=== PATIENT | male | born 1960 | race Caucasian/White ===

== ENCOUNTER 2019-12-06 21:03 | Inpatient (IN) | payer OTHER ==
[~2019-12-06] VITALS: Ht 177.8 cm; Wt 120.2 kg
--- NOTE | ~2019-12-06 | OP ---
[address] [address] OPERATIVE REPORT Name: STEVAN OCONNELL Room: [address] IN M.R.#: [id number] Admission: 12/07/19 Attend Phys: Jaqueline White MD Discharge: Date of : 58 Report #: [id number] THIS REPORT FOR: //name// cc: Chau Ireland Bradley L. DO ~ THIS REPORT FOR: //name// CC: Chau White DATE OF SERVICE: 12/08/2019 PREOPERATIVE DIAGNOSES: 1. Gallstone pancreatitis. 2. Cholecystitis. 3. History of choledocholithiasis. POSTOPERATIVE DIAGNOSES: 1. Gallstone pancreatitis. 2. Cholecystitis. 3. History of choledocholithiasis. PROCEDURE: Laparoscopic cholecystectomy with intraoperative cholangiogram. SURGEON: Ramirez Barajas MD ANESTHESIA: General. ESTIMATED BLOOD LOSS: 50 mL. SPECIMEN: Gallbladder. DESCRIPTION OF PROCEDURE: After informed consent was obtained, the patient was brought to the operating room and placed supine. SCDs were placed and working, preoperative antibiotics were administered, general anesthesia was induced. The abdomen was prepped and draped in usual sterile fashion. A 5 mm incision was made in the left upper quadrant. A 5 mm trocar was placed under direct vision. Pneumoperitoneum was established. Three right upper quadrant 5 mm ports were placed under direct vision and a periumbilical 5 mm trocar. The patient was placed in reverse Trendelenburg position. The gallbladder was grasped and retracted cephalad. It was inflamed consistent with cholecystitis. I worked to dissect out the cystic duct and cystic artery. The area was very inflamed and careful dissection was undertaken to identify all the structures. A ductotomy was made. Cholangiogram catheter was inserted. Cholangiogram [place] [address] OPERATIVE REPORT Name: STEVAN OCONNELL Room: [address] IN [facility]#: [id number] Admission: 12/07/19 Attend Phys: Jaqueline White MD Discharge: Date of : 58 Report #: [id number] This demonstrated filling of the cystic duct, common bile duct, common hepatic duct, bifurcation of the hepatics. There was easy flow into the duodenum. However, at the level of the cystic duct there appeared to be a 4-5 mm filling defect. It was difficult to say whether this was an air bubble or 1 more common bile duct stone. The cholangiogram catheter was removed. The cystic duct and artery were clipped and ligated leaving a clip and on the cystic artery and a PDS Endoloop on the remaining cystic duct. Gallbladder was then taken off the liver bed and this was done with electrocautery. It was placed into an Endopouch and removed through the right lateral incision. The ports were then removed under direct vision. The fascia at the right lateral incision was closed with a gslutr-gd-dyudc 0 Vicryl. Skin was closed with 4-0 Monocryl. Incisions were sealed with Dermabond. INTRAOPERATIVE FINDINGS: There appeared to be a filling defect at the level of the cystic duct and common bile duct junction. There was good easy flow into the duodenum. COMPLICATIONS: None. DISPOSITION: The patient was taken to recovery in satisfactory condition. By: 1216 [id number] Barajas MD /nt
--- NOTE | ~2019-12-06 | PROC ---
[address] [address] PROCEDURE REPORT Name: STEVAN OCONNELL Room: [address] ADM IN M.R.#: [id number] Admission: 12/07/19 Attend Phys: Jaqueline White MD Discharge: Date of : 58 Report #: [id number] THIS REPORT FOR: //name// cc: Chau Ireland Bradley L. DO ~ THIS REPORT FOR: //name// For GI report, please see the Provation report in Perceptive 7 content. By: 0639Medical Records Staff TRICE /RAGHAV
[2019-12-06 21:09] VITALS: BP 139/83
[2019-12-06] MEDS ORDERED: FENOFIBRATE150 MG PO (21:20)
[2019-12-06] MEDS ORDERED: PERCOCET 7.5-31 EAC1 PO (21:21)
[2019-12-06] MEDS ORDERED: TOPROL XL50 MG PO (21:21)
[2019-12-06] MEDS ORDERED: FLEXERIL PO (21:21)
[2019-12-06] MEDS ORDERED: AMLODIPINE BESY10 MG PO (21:21)
[2019-12-06] MEDS ORDERED: LODINE400 M1 PO (21:22)
[2019-12-06] MEDS ORDERED: ZOCOR20 MG PO (21:22)
[2019-12-06] MEDS ORDERED: METFORMIN HCL500 M3 (21:22)
[2019-12-06 21:23] LABS: URINE BLOOD TRACE (Negative); URINE CLARITY CLEAR; URINE COLOR DARK YELLOW; URINE GLUCOSE-RANDOM TRACE (Negative); URINE KETONES TRACE (Negative); URINE LEUKOCYTES-REFLEX NEGATIVE (Negative); URINE PROTEIN 1+ (Negative); URINE SPECIFIC GRAVITY 1.025 (1.005-1.030)
[2019-12-06] MEDS ORDERED: GLIMEPIRIDE4 MG PO (21:23)
[2019-12-06 21:27] LABS: ICTOTEST (BILI CONFIRMATORY) Positive (Negative); URINE BILIRUBIN 3+ (Negative); URINE NITRITE-REFLEX POSITIVE (Negative)
[2019-12-06 21:45] LABS: AMORPHOUS URATES Many /LPF (None Seen); BACTERIA-REFLEX >30 Many /HPF (None Seen); CASTS None Seen /LPF (None Seen); SQUAMOUS 0-3 Few /LPF (0-3); URINE RBC 0-2 Rare /HPF (0-2); URINE WBC-REFLEX 0-5 Rare /HPF (0-5)
[2019-12-06 21:45] LABS: HEMATOCRIT 41.2 % (42.0-52.0); HEMOGLOBIN 14.5 gm/dL (14.0-18.0); MCH 28.4 pg (26.0-34.0); MCHC 35.3 g/dL (28.0-37.0); MCV 80.4 fL (80.0-100.0); MPV 8.7 fl. (7.2-11.1); NUCLEATED RBCS 0 /100WBC; PLATELET COUNT* 147 thou/uL (150-400); RBC 5.12 mil/uL (4.50-6.00); RDW-CV 13.5 % (10.5-14.5); WBC 8.3 thou/uL (4.0-11.0)
[2019-12-06 22:06] LABS: INR 1.3; PROTIME 13.1 Seconds (9.20-11.50)
[2019-12-06 22:07] LABS: CALCIUM 8.4 mg/dL (8.5-10.1); CREATININE 1.1 mg/dL (0.6-1.3)
[2019-12-06 22:15] LABS: PLATELET ESTIMATE ADEQUATE
[2019-12-06 22:16] LABS: ABSOLUTE LYMPHOCYTES 0.6 thou/uL (0.8-5.3); ABSOLUTE MONOCYTES 0.4 thou/uL (0.0-1.2); ABSOLUTE NEUTROPHILS 7.3 thou/uL (1.6-8.1); ALBUMIN 2.7 g/dL (3.4-5.0); ANISOCYTOSIS Occasional; MAGNESIUM 1.4 mg/dL (1.8-2.4); POLYCHROMASIA Occasional; TOTAL BILIRUBIN 8.5 mg/dL (<0.1-1.0); TOTAL PROTEIN 6.2 g/dL (6.4-8.2)
[2019-12-06 22:22] LABS: POTASSIUM 2.9 mmol/L (3.5-5.1)
[2019-12-07 01:00] VITALS: BP 118/62
[2019-12-07 01:30] VITALS: BP 101/54
--- NOTE | 2019-12-07 05:32 | NUR ---
PATIENT ARRIVED ON FLOOR FROM ER AT ABOUT 0110. PATIENT ADMISSION HISTORY AND ASSESSMENT WAS COMPLETED CHARTED. IV FLUIDS WERE STARTED AT 100 ML/HR. PATIENT IS NPO ORDERED. WILL CONTINUE TO MONITOR.
[2019-12-07 05:43] LABS: MAGNESIUM 2.1 mg/dL (1.8-2.4); POTASSIUM 3.4 mmol/L (3.5-5.1)
[2019-12-07 08:08] VITALS: BP 137/87
[2019-12-07 08:38] LABS: ABSOLUTE LYMPHOCYTES 0.8 thou/uL (0.8-5.3); HEMATOCRIT 39.7 % (42.0-52.0); MCH 28.4 pg (26.0-34.0); RDW-CV 13.6 % (10.5-14.5)
[2019-12-07 08:40] LABS: ABSOLUTE EOSINOPHILS 0.1 thou/uL (0.0-0.7); ABSOLUTE MONOCYTES 0.6 thou/uL (0.0-1.2); ABSOLUTE NEUTROPHILS 5.7 thou/uL (1.6-8.1); BASOPHILS 0.3 %; EOSINOPHILS 0.7 %; HEMOGLOBIN 14.2 gm/dL (14.0-18.0); LYMPHOCYTES 10.8 %; MCHC 35.7 g/dL (28.0-37.0); MCV 79.6 fL (80.0-100.0); MONOCYTES 8.3 %; MPV 8.3 fl. (7.2-11.1); NUCLEATED RBCS 0 /100WBC; PLATELET COUNT* 145 thou/uL (150-400); POLYS 79.9 %; RBC 4.99 mil/uL (4.50-6.00); WBC 7.2 thou/uL (4.0-11.0)
[2019-12-07 09:02] LABS: ALBUMIN 2.3 g/dL (3.4-5.0); CALCIUM 8.1 mg/dL (8.5-10.1); CREATININE 0.9 mg/dL (0.6-1.3); POTASSIUM 3.4 mmol/L (3.5-5.1); TOTAL BILIRUBIN 9.8 mg/dL (<0.1-1.0); TOTAL PROTEIN 6.3 g/dL (6.4-8.2)
[2019-12-07 20:30] VITALS: BP 122/72
[2019-12-08 05:00] LABS: ABSOLUTE BASOPHILS 0.1 thou/uL (0.0-0.2); ABSOLUTE LYMPHOCYTES 0.8 thou/uL (0.8-5.3); ABSOLUTE MONOCYTES 0.4 thou/uL (0.0-1.2); ABSOLUTE NEUTROPHILS 6.9 thou/uL (1.6-8.1); BASOPHILS 0.6 %; EOSINOPHILS 0.1 %; HEMATOCRIT 39.1 % (42.0-52.0); HEMOGLOBIN 13.4 gm/dL (14.0-18.0); LYMPHOCYTES 10.1 %; MCH 28.1 pg (26.0-34.0); MCHC 34.2 g/dL (28.0-37.0); MCV 82.3 fL (80.0-100.0); MONOCYTES 4.6 %; MPV 8.6 fl. (7.2-11.1); NUCLEATED RBCS 0 /100WBC; PLATELET COUNT* 176 thou/uL (150-400); POLYS 84.6 %; RBC 4.75 mil/uL (4.50-6.00); WBC 8.1 thou/uL (4.0-11.0)
[2019-12-08 05:16] LABS: PREALBUMIN 7.8 mg/dL (18.0-35.7)
[2019-12-08 05:22] LABS: ALBUMIN 2.1 g/dL (3.4-5.0); CALCIUM 7.8 mg/dL (8.5-10.1); CREATININE 0.9 mg/dL (0.6-1.3); POTASSIUM 3.8 mmol/L (3.5-5.1); TOTAL BILIRUBIN 5.6 mg/dL (<0.1-1.0); TOTAL PROTEIN 6.2 g/dL (6.4-8.2)
[2019-12-08 05:29] LABS: % SATURATION 21 % (20-39); IRON 52 ug/dL (50-175)
[2019-12-08 07:52] LABS: ESR (SEDRATE) 40 mm/hr (0-20)
[2019-12-08 08:05] VITALS: BP 139/71
--- NOTE | 2019-12-08 08:29 | NUR ---
PATIENT SLEPT MOST OF THE NIGHT. IBUPROFEN WAS GIVEN ONCE FOR A TEMP OF 100.4 AT BEGINNING OF SHIFT. TEMP CAME DOWN TO 98.0 AND WAS 99.4 THIS MORNING. PATIENT ACCIDENTALLY PULLED OUT IV THIS MORNING. NEW IV WAS STARTED. IV FLUIDS AND ANITBIOTICS WERE GIVEN. WILL CONTINUE TO MONITOR.
--- NOTE | 2019-12-08 08:34 | NUR ---
Pt is A&O. Resides at home with his . Active and independent. Pt sleeps with a cpap, no other DME. No hx of HH or SNF. Goal is home at ne, no needs anticipated.
--- NOTE | 2019-12-08 08:53 | EKG ---
[place] [address] ELECTROCARDIOGRAM REPORT Name: STEVAN OCONNELL Room: [address] ADM IN M.R.#: [id number] Admission: 12/07/19 Attend Phys: Jaqueline White, Discharge: Date of : 58 Date of Service: 12/06/192113 Report #: [id number] THIS REPORT FOR: //name// [facility] ED Test Date: 2019-12-06 Test Time: 21:14:24 Pat Name: STEVAN OCONNELL Department: Room: [facility] Gender: M Town Manager: [place] : 1960 Requested By: Joan Horner Order Number: [id number] MD: Van Morelos Measurements Intervals [place] Rate: 110 P: 26 HI: 122 QRS: -4 QRSD: 117 T: 176 QT: 321 QTc: 435 Interpretive Statements Sinus tachycardia Nonspecific intraventricular conduction delay Borderline repolarization abnormality No previous ECG available for comparison Electronically Signed On 12-08-2019 8:52:21 CDT by Van Morelos [email or web address] <ELECTRONICALLY SIGNED> By: Van Morelos MD, [facility] 12/08/19 0852 13 Van Morelos MD, [facility] /EPI
--- NOTE | 2019-12-08 18:54 | NUR ---
PT A&OX4 VSS. PT APPEARS JAUNDICED, SCLERA OF EYES YELLOW-TINGED. PT ON CLEAR LIQUIDS UNTIL MIDNIGHT. PT NPO AFTER MIDNIGHT FOR SX SCHEDULED AT 1300 THURSDAY. IV TO L HAND PATENT. FLUIDS AND ABX INFUSING. PT ACCUCHECK, INSULIN ADMINISTERED DIRECTED. PRN MORPHINE ADMINISTERED WITH ZOFRAN X1 REQUESTED. PT UP AD VICKY, GAIT STEADY. CONTINENT OF B/B. PT AWARE HE IS SCHEDULED FOR SX TOMORROW. SPOUSE UPDATED BEFORE SHE LEFT THE UNIT FOR THE DAY. PT RESTS IN RECLINER WITH CALL LIGHT IN REACH. WILL CONTINUE TO MONITOR.
[2019-12-08 21:00] VITALS: BP 125/80
[2019-12-09 02:05] VITALS: BP 125/80
[2019-12-09 04:39] LABS: ABSOLUTE LYMPHOCYTES 1.3 thou/uL (0.8-5.3); ABSOLUTE MONOCYTES 0.5 thou/uL (0.0-1.2); ABSOLUTE NEUTROPHILS 8.8 thou/uL (1.6-8.1); BASOPHILS 0.2 %; EOSINOPHILS 0.4 %; HEMATOCRIT 38.7 % (42.0-52.0); HEMOGLOBIN 13.6 gm/dL (14.0-18.0); LYMPHOCYTES 12.1 %; MCH 28.7 pg (26.0-34.0); MCHC 35.2 g/dL (28.0-37.0); MCV 81.7 fL (80.0-100.0); MPV 8.6 fl. (7.2-11.1); NUCLEATED RBCS 0 /100WBC; POLYS 82.3 %; RBC 4.74 mil/uL (4.50-6.00); WBC 10.7 thou/uL (4.0-11.0)
[2019-12-09 04:55] LABS: ALBUMIN 2.3 g/dL (3.4-5.0); CREATININE 0.9 mg/dL (0.6-1.3); POTASSIUM 3.5 mmol/L (3.5-5.1); TOTAL BILIRUBIN 3.2 mg/dL (<0.1-1.0); TOTAL PROTEIN 6.7 g/dL (6.4-8.2)
[2019-12-09 05:44] LABS: PLATELET COUNT* 304 thou/uL (150-400)
--- NOTE | 2019-12-09 06:55 | NUR ---
PT AOX4, UP AD VICKY IN ROOM AT START OF SHIFT. IV MORPHINE GIVEN FOR CO ABD PAIN WITH FAIR RESULT, IV DILAUDID GIVEN NEXT TIME FOR CO PAIN WITH BETTER EFFECTIVENESS. RHAND IVF INFUSING PER PUMP,ABX GIVEN ORDERED. NO FEVER OVERNIGHT. HAS BEEN NPO SINCE MIDNIGHT FOR LAP SUNG TODAY AT 1300. AM LABS DRAWN. VOIDING WITHOUT DIFFICULTY. REFUSING INSULIN AT HS FOR ACCUCHECK 154. ABLE TO USE CALL LITE AND MAKE NEEDS KNOWN.
[2019-12-09 08:10] VITALS: BP 126/64
[2019-12-09] MEDS ORDERED: ZOFRAN ODT4 MG PO (10:00)
[2019-12-09] MEDS ORDERED: PERCOCET 7.5-31 EAC1 PO (10:01)
[2019-12-09 13:30] VITALS: BP 127/73
[2019-12-09 15:50] VITALS: BP 121/74
--- NOTE | 2019-12-09 16:13 | NUR ---
PATIENT NPO THIS AM FOR LAP CHOLEY. PATIENT RETURNED FROM SURGERY THIS AFTERNOON, VITALS STABLE AND 6 LAP SITES NOTED. PATIENT UP TO BEDSIDE WITH ASSISTANCE AND UTILIZED URINAL. [address], CONT PULSE OX. NO COMPLAINTS OF PAIN. PER GI LFT'S TO BE DRAWN IN AM AND NPO AFTER MIDNIGHT IN CASE OF NEED FOR STONE REMOVAL. PATIENT AWARE OF PLAN OF CARE.
[2019-12-09 19:30] VITALS: BP 124/79
[2019-12-10 05:16] LABS: DIRECT BILIRUBIN 1.7 mg/dL (<0.1-0.3); TOTAL BILIRUBIN 2.3 mg/dL (<0.1-1.0)
--- NOTE | 2019-12-10 07:42 | NUR ---
PT SLEPT OFF AND ON THIS SHIFT. PAIN MEDS GIVEN TWICE THIS SHIFT. PT AMBULATING INDEPENDENTLY TO BATHROOM. EDUCATED ON FALLS. 6 LAP SITES TO ABD. BILI STILL UP AT 2.3. PT ANTICIPATING TO DC TO HOME TODAY. NPO SINCE MIDNIGHT. WILL CONTINUE TO MONITOR.
[2019-12-10 08:05] VITALS: BP 131/77
--- NOTE | 2019-12-10 09:40 | NUR ---
DR DURON JUST CALLED AND STATED THAT PATIENT COULD EAT AND GO HOME. HE HAS BEEN CLEARED TO GO HOME BY DR GAVIRIA AND SURGERY WELL.
[2019-12-10 09:41] VITALS: BP 131/77
--- NOTE | 2019-12-10 10:27 | NUR ---
ALL DISCHARGE INSTRUCTIONS EXPLAINED TO PATIENT AND ALL QUESTIONS ANSWERED. PATIENT STATED THAT HE HAD PLENTY OF PAIN MEDICATION AT HOME ALREADY AND I WENT OVER ALL THE MEDICATIONS TO CONTINUE AND THE NEW MEDICATION AND PROVIDED HIM WITH AN EDUCATIONAL HANDOUT OVER THE ZOFRAN. I DID REMOVE THE IV IN HIS RIGHT HAND AND THE CANNULA WAS INTACT. PATIENT VERBALIZED UNDERSTANDING OFF ALL DISCHARGE INSTRUCTIONS. HE WAS GIVEN BREAKFAST BUT WANTS TO WAIT UNTIL HE GETS HOME TO EAT. DENIES ANY PAIN OR NAUSEA AT THIS TIME. HIS IS ON HER WAY HERE TO PICK HIM UP.
--- NOTE | 2019-12-10 11:31 | NUR ---
PATIENT OUT TO POV ACCOMPANIED BY NURSING STAFF AND VIA WHEELCHAIR. ALL PERSONAL BELONGINGS WITH PATIENT AT TIME OF DISHCARGE. NO PAIN OR NEEDS VERBALIZED AT TIME OF DISCHARGE.
--- NOTE | 2019-12-12 11:06 | CON ---
[address] [address] CONSULTATION Name: STEVAN OCONNELL Caro Room: [address] IN M.R.#: [id number] Admission: 12/07/19 Attend Phys: Jaqueline White MD Discharge: 12/10/19 Date of : 58 Report #: [id number] THIS REPORT FOR: //name// cc: Chau Ireland Bradley L. DO ~ THIS REPORT FOR: //name// CC: Chau Ireland Hua Akash Reynolds MD DATE OF SERVICE: 12/07/2019 REFERRING PHYSICIAN: Jaqueline White MD REASON FOR CONSULTATION: Abdominal pain and jaundice ____ epigastric and right upper quadrant pain with elevated LFTs. IMPRESSION: 1. Obstructive jaundice, most likely related to choledocholithiasis with associated mild pancreatitis. 2. Symptomatic cholelithiasis. 3. Hepatosplenomegaly of uncertain significance with a family history of chronic liver disease and liver cancer. RECOMMENDATIONS: 1. We will proceed with upper endoscopy due to his splenomegaly to make sure he has not had evidence for portal hypertension and ERCP with biliary sphincterotomy, stone extraction, and possible biliary stent placement today. If all goes well, I expect the patient undergo a laparoscopic cholecystectomy within the next 24-48 hours. 2. I have discussed the plans with the patient as well as , Umm, and everyone is in agreement with the same. HISTORY OF PRESENT ILLNESS: He is a very pleasant 59-year-old white male who has been having problems off and on for the last week or so with rather severe upper abdominal pain associated with nausea, vomiting, not want to eat. He also had some fevers and shaking chills. He has not noticed that his urine has gotten darker, stools have gotten perforator loader. He has never had anything like this in the past. No history of problems related to the same in the past. He has no other issues at this time. ALLERGIES: [place] [address] CONSULTATION Name: GETACHEWSTEVAN HEREDIA Room: [address] IN ..#: [id number] Admission: 12/07/19 Attend Phys: Jaqueline White MD Discharge: 12/10/19 Date of : 58 Report #: [id number] MEDICATIONS AT HOME: Include fenofibrate, Percocet, Flexeril, amlodipine, metoprolol, metformin, simvastatin, etodolac and glimepiride. PAST MEDICAL HISTORY: Remarkable for hypertension, diabetes, hyperlipidemia, history of chronic arthritis and chronic pain syndrome. SOCIAL HISTORY: The patient does not smoke or drink. FAMILY HISTORY: As above. PHYSICAL EXAMINATION: GENERAL: A pleasant 59-year-old gentleman who is well tanned. CARDIOPULMONARY: Revealed a regular rate and rhythm. LUNGS: Clear. ABDOMEN: Taut with some definite tenderness in the right upper quadrant. No rebound or guarding was noted. LABORATORY TEST: From revealed a white count of 7.2, hemoglobin 14.2, platelet count 145,000, MCV is 79.6 and RDW 13.6. His sodium on the was 134, potassium 3.4, chloride 99, bicarbonate is 27, BUN is 16, creatinine 0.9, total bilirubin 9.8, alkaline phosphatase 277, AST 139, ALT 102, albumin 2.3. CT scan of the abdomen and pelvis performed on 12/05 revealed liver to be normal. His spleen is enlarged at 15.4 cm. No focal masses are noted. There are numerous layering gallstones within the gallbladder. There might be some gallbladder wall thickening that is developing. He has dilated extra common bile duct with radiodensity towards the ampulla of Vater and what appears to be an impacted gallstone. Pancreas did not reveal any evidence for pancreatitis. No other abnormalities were noted other than possible ____ inflation at the level of the duodenum. He does have ventral hernia and umbilical hernia, fat without entrapment. MRCP performed on the was reviewed and revealed multiple gallstones within the gallbladder. There is also a duct, it is dilated up to 12 mm with filling defects, at least 1 filling defect noted in the distal aspect of the common duct compatible with choledocholithiasis. There is also hepatosplenomegaly and some small hepatic cysts. The remainder of the exam was unremarkable. DISCUSSION: At the present time, the patient had symptomatic cholelithiasis, choledocholithiasis and jaundice. We will proceed with EGD, ERCP today and make further recommendations thereafter. <ELECTRONICALLY SIGNED> By: Barron Hess DO 12/12/19 1106 1145 [id number] Hess DO /nt
--- NOTE | 2019-12-12 18:06 | PATH ---
[address] [address] PATHOLOGY RPT PROCEDURE Name: ANISHRIGO Elizondo Room: [address] IN M.R.#: [id number] Admission: 12/07/19 Date of : 58 Discharge: 12/10/19 Report #: [id number] Path Case #: [id number] [facility] Accession Number: [id number] . 01 Material submitted: . gallbladder - GALLBLADDER . 01 Clinician provided ICD-10: K85.10 R65.11 . 01 Clinical history: . Cholecystitis post ERCP, gallstones, pancreatitis. . 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 (PORFIRIO:pit 12/12/2019) QTP 12/12/2019 153 Local . 02 Electronically signed: . Mat Deluca MD, Pathologist NPI- [id number] . 01 Gross description: . Received in formalin labeled "Rigo Oconnell, gallbladder" is a previously opened cholecystectomy specimen measuring 7.9 x 3.8 x 2.8 cm. The serosa is sol-pink with focal adhesions and the specimen is opened to reveal sol-pink velvety mucosa without polyps or masses. The average wall thickness is 0.5 cm. Multiple black roughened calculi are present within the gallbladder, measuring in aggregate 4.0 x 2.1 x 0.7 cm, and ranging from 0.4-0.9 cm in greatest dimension. Sorting Machine Attendant sections of the fundus and body and the cystic duct margin are submitted in A1. ([facility] [employer]; 12/10/2019) [facility] 12/10/2019 09 Local . 02 Pathologist provided ICD-10: K80.12 . 02 CPT . 140810 Specimen Comment: A courtesy copy of this report has been sent to [phone] Specimen Comment: [phone], Specimen Comment: Report sent to ,DR NEIL / DR JULIAN Performed at: 01 [place] [address] PATHOLOGY RPT PROCEDURE Name: RIGO OCONNELL Caro Room: [address] IN M.R.#: [id number] Admission: 12/07/19 Date of : 58 Discharge: 12/10/19 Report #: [id number] Path Case #: [id number] [address] [facility] [address], [place], [place] [id number] MD Kendrick Winters MD Phone: [phone] Performed at: 02 [facility] [address], [place], [place] [address] MD Mat Deluca MD Phone: [phone]
--- NOTE | 2019-12-13 10:54 | PATH ---
[address] [address] PATHOLOGY RPT PROCEDURE Name: RIGO OCONNELL Room: [address] IN M.R.#: [id number] Admission: 12/07/19 Date of : 58 Discharge: 12/10/19 Report #: [id number] Path Case #: [id number] [facility] Accession Number: [id number] . 01 Material submitted: . stomach - ANTRAL BIOPSY FOR H. PYLORI . 01 Clinician provided ICD-10: K85.10 R65.10 . 02 Diagnosis: "Antral biopsy for H. pylori", biopsy: - Gastric antral type mucosa with mild reactive changes. - Negative H. pylori immunohistochemical stain (block A1); control reacted appropriately. (CLW:pit 12/09/2019) P 12/09/2019 1043 Local . 02 Electronically signed: . Mignon Rodriguez MD, Pathologist NPI- [id number] . 01 Gross description: . The specimen is received in formalin, labeled "Tressaariane Rigo, antral biopsy for H. pylori" and consists of 2 fragments of pink-sol tissue measuring 0.6 x 0.3 x 0.2 cm in aggregate which are entirely submitted in A1. ([facility]; 12/08/2019) JFQ/JFQ 12/08/2019 1727 Local . 02 Pathologist provided ICD-10: K31.9 . 02 CPT . 424835, Z06460 Specimen Comment: A courtesy copy of this report has been sent to [phone] Specimen Comment: [phone], Specimen Comment: Report sent to ,DR NEIL / DR JULIAN Specimen Comment: A duplicate report has been generated due to demographic updates. Performed at: 01 [facility] [address] [place] [id number] MD Kendrick Winters MD Phone: [phone] Performed at: [facility] [address] [place] [id number] [place] [address] PATHOLOGY RPT PROCEDURE Name: RIGO OCONNELL Room: [address] IN M.R.#: [id number] Admission: 12/07/19 Date of : 58 Discharge: 12/10/19 Report #: [id number] Path Case #: [id number] MD Lul Pagan MD Phone: [phone]
== END 2019-12-10 11:30 | disposition home or self-care (01) | DRG 417 ==
LOC: M.ERS 21:03 → M.TBA-ER 12-07 00:40 → M.3W 12-07 00:40
PROVIDERS: Emergency Medicine; Internal Medicine; Internal Medicine Gastroenterology; ADMIT Internal Medicine; ATTEND Internal Medicine
DX: K85.10 Biliary acute pancreatitis without necrosis or infection (principal); R65.11 Systemic inflammatory response syndrome (SIRS) of non-infectious origin with acute organ dysfunction; K80.42 Calculus of bile duct with acute cholecystitis without obstruction; R16.2 Hepatomegaly with splenomegaly, not elsewhere classified; G89.29 Other chronic pain; E66.01 Morbid (severe) obesity due to excess calories; E11.9 Type 2 diabetes mellitus without complications; I10 Essential (primary) hypertension; E87.6 Hypokalemia; K26.9 Duodenal ulcer, unspecified as acute or chronic, without hemorrhage or perforation; E88.09 Other disorders of plasma-protein metabolism, not elsewhere classified; E78.00 Pure hypercholesterolemia, unspecified; Z68.38 Body mass index [BMI] 38.0-38.9, adult; Z79.899 Other long term (current) drug therapy; Z79.84 Long term (current) use of oral hypoglycemic drugs; Z84.1 Family history of disorders of kidney and ureter